=== PATIENT | male | born 1985 | race Caucasian/White ===

== ENCOUNTER → 2016-06-17 | Emergency (ER) | payer OTHER ==
--- NOTE | 2016-06-17 19:02 | DIAGNOSTIC IMAGING REPORT ---
PROCEDURE: CT ABD/PELVIS WITH CONTRAST CLINICAL INDICATION: Left lower quadrant pain x 17 hours, initial encounter. TECHNIQUE: 125 ml of Isovue 300 were injected intravenously and axial images were obtained of the entire abdomen and pelvis with sagittal and coronal reformations. COMPARISON: None. FINDINGS: ABDOMEN: Lung base are clear. Heart size is normal. Hepatic steatosis. Contracted gallbladder. Pancreas, spleen (splenule) and adrenal glands are normal. Small bilateral renal cysts. Normal abdominal aorta. Nonspecific bowel gas pattern. PELVIS: Normal appendix. 1.7 cm left lower quadrant fatty mass with adjacent inflammatory changes. This is adjacent to the proximal sigmoid colon without definite evidence of diverticuli and findings are most consistent with epiploic appendagitis. Trace free fluid. Normal bladder and prostate. Bones are unremarkable. IMPRESSION: 1. Left lower quadrant epiploic appendagitis. No definite evidence of diverticula to suggest diverticulitis 2. Trace free fluid the pelvis 3. Hepatic steatosis 4. Results discussed with Dr. Chairez All CT scans at this facility use dose modulation, iterative reconstruction, and/or weight-based dosing when appropriate to reduce radiation dose to as low as reasonably achievable.
--- NOTE | 2016-06-17 19:20 | ED NURSING NOTES ---
Clinical Report - Nurses [facility] [address] [place] [address] 06/17/2016 15:36 Patient: ROMY CROCKER TRIAGE Triage time 16:19. Acuity: LEVEL 3. Chief Complaint: ABDOMINAL PAIN. Alert. No acute distress. SEPSIS SCREEN: Sepsis Screen. Negative (no infection suspected/documented). RITCHIE COMA SCORE: Ritchie Coma Scale: 15- eyes open spontaneously (4); best verbal response- oriented x 4 (5); best motor response- obeys commands (6). --16:24 Sari Grider R.N. 16:19 06/17/16. BP: 139/93. HR: 85. RR: 18. O2 saturation: 98%. Temp: 98.3 F. Pain level now 7/10. --16:24 Sari Grider R.N. 17:42 06/17/16. BP: 150/87. HR: 83. RR: 20. O2 saturation: 98%. Temp: 98.1 F. Pain level now: 10. --17:43 Mi Chavez R.N. Weight: 90.7 kg stated. Height/Length: 66 inches Per Patient. BMI: 32.3. --16:21 Sari Grider R.N. Medications None. --16:24 aSri Grider R.N. Allergies No Known Drug Allergy. --16:25 Sari Grider R.N. History Arrived by private vehicle. Historian: patient. Accompanied by (spouse dropped off). Primary physician ([facility]). This started today. ( Pt. was seen at [facility] today and told he may have diverticulitis. He was instructed to go to the ED for a CT.). 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 PAST MEDICAL HX: Immunizations: up-to-date. SOCIAL HX: Never smoker. No alcohol use or drug use. No recent travel. No infectious disease exposure. No known contact with a sick individual. ABUSE ASSESSMENT: Abuse assessment: The patient was asked "Do you feel safe in your home?" and "Has anyone hurt you or threatened to hurt you?". No report of abuse. SELF HARM ASSESSMENT: A self harm assessment was performed. The patient answered "no" to the question "Do you have thoughts of harming or killing yourself?" and "Have you recently had thoughts about harming or killing others?". NUTRITIONAL RISK ASSESSMENT: The nutritional risk assessment revealed no deficiencies. FUNCTIONAL ASSESSMENT: Functional assessment: no impairments noted. LEARNING NEEDS ASSESSMENT: The learning needs assessment revealed no barriers. --16:24 Sari Grider R.N. Interventions ID band on patient. Ambulatory. --16:24 Sari Grider R.N. PHYSICAL ASSESSMENT Ambulatory to room. GENERAL / NEURO / PSYCH: Alert. Appears in no acute distress. HEENT: Mucous membranes are pink. RESPIRATORY: Respirations not labored. CVS: Capillary refill less than 2 seconds. GI / : Abdomen soft. Abdominal tenderness in the left lower quadrant. SKIN: Skin is warm and dry. --16:25 Sari Grider R.N. NURSING PROGRESS NOTES ( pt. rapid triaged and sent back to waiting room.). --16:27 Sari Grider R.N. Patient ID band checked for patient name, birthdate and medical record number: patient confirmed. Instructions provided to collect clean catch urine and patient verbalized understanding. Clean catch urine collected with return of yellow-colored clear urine; sample sent to lab for urinalysis. Specimen labeled in the presence of the patient. --16:27 Sari Grider R.N. Patient gowned. Head of bed elevated. Two patient identifiers checked. Call light placed in reach. Side rails up x 1. Bed placed in lowest position. Brakes of bed on. Patient ready for evaluation- chart flagged. --17:45 Mi Chavez R.N. DISPOSITION / DISCHARGE 19:31 06/17/16. BP: 137/83. HR: 66. RR: 16. O2 saturation: 97%. Pain level now: 10/27. --19:35 Mi Chavez R.N. Departure time: 1932. Condition at departure: unchanged. No learning barriers present. Discharge instructions provided and reviewed with the patient. Reviewed medication(s). Reviewed referral to a primary care physician. Patient verbalized understanding. Written instructions provided in [place]. The patient was discharged home and accompanied by spouse. He left the Emergency Department ambulatory and via private vehicle. Spouse driving. FALL RISK ASSESSMENT: Fall risk assessment completed. No fall risk identified. --19:35 Mi Chavez R.N. 18:36 06/17/2016 Site #1 started via IV in the left antecubital space with an 18g angiocath; one attempt. Saline lock flushed with saline (inserted by Stephanie PEMBERTON). --19:36 Mi Chavez R.N. 19:37 06/17/2016 Site #1 removed upon discharge. Catheter intact. Bandage applied. --19:37 Mi Chavez R.N. Locked/Released at 06/17/2016 19:46 by Mi Chavez R.N.
--- NOTE | 2016-06-17 19:20 | ED CLINICAL REPORT ---
Clinical Report - Physicians/Mid Levels [facility] [address] [place] [address] 06/17/2016 15:36 Patient: ROMY CROCKER Time Seen: 17:53; initial patient contact. Arrived- By private vehicle. Historian- patient. HISTORY OF PRESENT ILLNESS Chief Complaint: ABDOMINAL PAIN. It is described as sharp and stabbing. No radiation. It is described as located in the left lower quadrant. At its maximum, severity described as moderate. When seen in the E.D., severity described as moderate. Modifying factors. Not worsened by anything. Not relieved by anything. This started today and is still present. It was abrupt in onset and has been constant and waxing/waning. No nausea, loss of appetite, vomiting or diarrhea. Similar symptoms previously: None. Recent medical care: The patient was seen recently in a clinic. ( WBC 10.7 and nl CMP, amylase, and lipase). REVIEW OF SYSTEMS No constipation, pain with urination, urinary frequency, fever or chills. All systems otherwise negative, except as recorded above. PAST HISTORY Negative. Problems: no known problems. Surgeries: No history of previous surgery. Additional Surgeries: no known surgeries. Medications: None. Allergies: No Known Drug Allergy. SOCIAL HISTORY Never smoker. No alcohol use or drug use. ADDITIONAL NOTES The nursing notes have been reviewed with agreement regarding the chief complaint, PMH and patient medications and allergies. PHYSICAL EXAM Vital Signs: 06/17/2016 16:19 BP: 139/93. HR: 85. RR: 18. O2 saturation: 98%. Temp: 98.3 F. Have been reviewed. Hypertensive. Heart rate normal. Respiratory rate normal. Temperature normal. Oxygen saturation normal. Appearance: Alert. Oriented X3. No acute distress. Eyes: No scleral icterus or pale conjunctivae. ENT: Pharynx normal. CVS: Normal heart rate and rhythm. Heart sounds normal. Respiratory: No respiratory distress. Breath sounds normal. Abdomen: Soft. Moderate tenderness in the left lower quadrant with guarding and rebound tenderness present. Bowel sounds normal. No organomegaly. No mass. Back: Normal inspection. No CVA tenderness. Skin: Normal skin color. No rash. Extremities: No lower extremity edema. Neuro: Oriented X 3. LABS, X-RAYS, AND EKG Abdominal CT: 1. Left lower quadrant epiploic appendagitis. No definite evidence of diverticula to suggest diverticulitis 2. Trace free fluid the pelvis 3. Hepatic steatosis. Study type: abdomen and pelvis. Abdominal CT performed with IV contrast. The study was independently viewed by me, interpreted by the radiologist and discussed with the radiologist. Interpretation time: 19:07. PROGRESS AND PROCEDURES Discussed case with on-call health care provider, (call returned 19:10 Dr. Lundberg). Health care provider will see patient in office. Disposition: Discharged home in good condition. Condition: good. CLINICAL IMPRESSION (Epiploic appendagitis). INSTRUCTIONS Your Current Medications: CONTINUE TAKING THE FOLLOWING MEDICATIONS: None*. Prescription Medications: Diclofenac 50 mg tablets: take 1 tablet orally every 8 hours as needed for pain. Dispense twenty (20). No refill. Hydrocodone/APAP 5mg / 325mg: take 1 orally every 6 hours as needed for pain. Dispense fifteen (15). No refill. Follow-up: Screening today revealed the patient's blood pressure to be in the pre-hypertensive range. The patient should follow up with a primary care provider for blood pressure management. Follow-up with: Clinton Lundberg MD, General Surgeon, , [facility], [address] [place] [address] Follow up if not better. Call for an appointment. (Electronically signed by Israel Chairez Dr. 06/17/2016 19:26)
--- NOTE | 2016-06-17 19:20 | ED ORDER SUMMARY ---
..... Patient: ROMY CROCKER OrderSheet [facility] VisitID: [id number] [place] [address] 31y, M Registration Date/Time: 06/17/2016 ORDER SHEET Weight: 90.7 kg (stated) Allergies: No Known Drug Allergy GENERAL ORDERS: UA-Culture if indicated Urgent (16:27 06/17/2016 Quentin Juarez per protocol) (Ack 17:03 LNations ER Tech1) (17:04 LNations ER Tech1) CT Abd/Pel w Cont (No) (14/0.82) Urgent (18:14 06/17/2016 Michael Mayen) (Ack 18:18 MANISHAoerdavid) (18:22 Michael Mayen) MEDICATION ORDERS: IV FLUIDS: ORDER SHEET NOTES: [Electronically signed by Israel Chairez Dr. (19:26 06/17/2016)] [Electronically signed by Mi Chavez R.N. (19:46 06/17/2016)] [Electronically locked/signed by Mi Chavez R.N. (19:46 06/17/2016)]
--- NOTE | 2016-06-17 19:20 | ED CLINICAL REPORT ---
Clinical Report - Physicians/Mid Levels [facility] [address] [place] [address] 06/17/2016 15:36 Patient: ROMY CROCKER Time Seen: 17:53; initial patient contact. Arrived- By private vehicle. Historian- patient. HISTORY OF PRESENT ILLNESS Chief Complaint: ABDOMINAL PAIN. It is described as sharp and stabbing. No radiation. It is described as located in the left lower quadrant. At its maximum, severity described as moderate. When seen in the E.D., severity described as moderate. Modifying factors. Not worsened by anything. Not relieved by anything. This started today and is still present. It was abrupt in onset and has been constant and waxing/waning. No nausea, loss of appetite, vomiting or diarrhea. Similar symptoms previously: None. Recent medical care: The patient was seen recently in a clinic. ( WBC 10.7 and nl CMP, amylase, and lipase). REVIEW OF SYSTEMS No constipation, pain with urination, urinary frequency, fever or chills. All systems otherwise negative, except as recorded above. PAST HISTORY Negative. Problems: no known problems. Surgeries: No history of previous surgery. Additional Surgeries: no known surgeries. Medications: None. Allergies: No Known Drug Allergy. SOCIAL HISTORY Never smoker. No alcohol use or drug use. ADDITIONAL NOTES The nursing notes have been reviewed with agreement regarding the chief complaint, PMH and patient medications and allergies. PHYSICAL EXAM Vital Signs: 06/17/2016 16:19 BP: 139/93. HR: 85. RR: 18. O2 saturation: 98%. Temp: 98.3 F. Have been reviewed. Hypertensive. Heart rate normal. Respiratory rate normal. Temperature normal. Oxygen saturation normal. Appearance: Alert. Oriented X3. No acute distress. Eyes: No scleral icterus or pale conjunctivae. ENT: Pharynx normal. CVS: Normal heart rate and rhythm. Heart sounds normal. Respiratory: No respiratory distress. Breath sounds normal. Abdomen: Soft. Moderate tenderness in the left lower quadrant with guarding and rebound tenderness present. Bowel sounds normal. No organomegaly. No mass. Back: Normal inspection. No CVA tenderness. Skin: Normal skin color. No rash. Extremities: No lower extremity edema. Neuro: Oriented X 3. LABS, X-RAYS, AND EKG Abdominal CT: 1. Left lower quadrant epiploic appendagitis. No definite evidence of diverticula to suggest diverticulitis 2. Trace free fluid the pelvis 3. Hepatic steatosis. Study type: abdomen and pelvis. Abdominal CT performed with IV contrast. The study was independently viewed by me, interpreted by the radiologist and discussed with the radiologist. Interpretation time: 19:07. PROGRESS AND PROCEDURES Discussed case with on-call health care provider, (call returned 19:10 Dr. Lundberg). Health care provider will see patient in office. Disposition: Discharged home in good condition. Condition: good. CLINICAL IMPRESSION (Epiploic appendagitis). INSTRUCTIONS Your Current Medications: CONTINUE TAKING THE FOLLOWING MEDICATIONS: None*. Prescription Medications: Diclofenac 50 mg tablets: take 1 tablet orally every 8 hours as needed for pain. Dispense twenty (20). No refill. Hydrocodone/APAP 5mg / 325mg: take 1 orally every 6 hours as needed for pain. Dispense fifteen (15). No refill. Follow-up: Screening today revealed the patient's blood pressure to be in the pre-hypertensive range. The patient should follow up with a primary care provider for blood pressure management. Follow-up with: Clinton Lundberg MD, General Surgeon, , [facility], [address] [place] [address] Follow up if not better. Call for an appointment. (Electronically signed by Israel Chairez Dr. 06/17/2016 19:26)
--- NOTE | 2016-06-17 19:20 | ED NURSING NOTES ---
Clinical Report - Nurses [facility] [address] [place] [address] 06/17/2016 15:36 Patient: ROMY CROCKER TRIAGE Triage time 16:19. Acuity: LEVEL 3. Chief Complaint: ABDOMINAL PAIN. Alert. No acute distress. SEPSIS SCREEN: Sepsis Screen. Negative (no infection suspected/documented). RITCHIE COMA SCORE: Ritchie Coma Scale: 15- eyes open spontaneously (4); best verbal response- oriented x 4 (5); best motor response- obeys commands (6). --16:24 Sari Grider R.N. 16:19 06/17/16. BP: 139/93. HR: 85. RR: 18. O2 saturation: 98%. Temp: 98.3 F. Pain level now 7/10. --16:24 Sari Grider R.N. 17:42 06/17/16. BP: 150/87. HR: 83. RR: 20. O2 saturation: 98%. Temp: 98.1 F. Pain level now: 10. --17:43 Mi Chavez R.N. Weight: 90.7 kg stated. Height/Length: 66 inches Per Patient. BMI: 32.3. --16:21 Sari Grider R.N. Medications None. --16:24 Sari Grider R.N. Allergies No Known Drug Allergy. --16:25 Sari Grider R.N. History Arrived by private vehicle. Historian: patient. Accompanied by (spouse dropped off). Primary physician ([facility]). This started today. ( Pt. was seen at [facility] today and told he may have diverticulitis. He was instructed to go to the ED for a CT.). 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 PAST MEDICAL HX: Immunizations: up-to-date. SOCIAL HX: Never smoker. No alcohol use or drug use. No recent travel. No infectious disease exposure. No known contact with a sick individual. ABUSE ASSESSMENT: Abuse assessment: The patient was asked "Do you feel safe in your home?" and "Has anyone hurt you or threatened to hurt you?". No report of abuse. SELF HARM ASSESSMENT: A self harm assessment was performed. The patient answered "no" to the question "Do you have thoughts of harming or killing yourself?" and "Have you recently had thoughts about harming or killing others?". NUTRITIONAL RISK ASSESSMENT: The nutritional risk assessment revealed no deficiencies. FUNCTIONAL ASSESSMENT: Functional assessment: no impairments noted. LEARNING NEEDS ASSESSMENT: The learning needs assessment revealed no barriers. --16:24 Sari Grider R.N. Interventions ID band on patient. Ambulatory. --16:24 Sari Grider R.N. PHYSICAL ASSESSMENT Ambulatory to room. GENERAL / NEURO / PSYCH: Alert. Appears in no acute distress. HEENT: Mucous membranes are pink. RESPIRATORY: Respirations not labored. CVS: Capillary refill less than 2 seconds. GI / : Abdomen soft. Abdominal tenderness in the left lower quadrant. SKIN: Skin is warm and dry. --16:25 Sari Grider R.N. NURSING PROGRESS NOTES ( pt. rapid triaged and sent back to waiting room.). --16:27 Sari Grider R.N. Patient ID band checked for patient name, birthdate and medical record number: patient confirmed. Instructions provided to collect clean catch urine and patient verbalized understanding. Clean catch urine collected with return of yellow-colored clear urine; sample sent to lab for urinalysis. Specimen labeled in the presence of the patient. --16:27 Sari Grider R.N. Patient gowned. Head of bed elevated. Two patient identifiers checked. Call light placed in reach. Side rails up x 1. Bed placed in lowest position. Brakes of bed on. Patient ready for evaluation- chart flagged. --17:45 Mi Chavez R.N. DISPOSITION / DISCHARGE 19:31 06/17/16. BP: 137/83. HR: 66. RR: 16. O2 saturation: 97%. Pain level now: 10/27. --19:35 Mi Chavez R.N. Departure time: 1932. Condition at departure: unchanged. No learning barriers present. Discharge instructions provided and reviewed with the patient. Reviewed medication(s). Reviewed referral to a primary care physician. Patient verbalized understanding. Written instructions provided in [place]. The patient was discharged home and accompanied by spouse. He left the Emergency Department ambulatory and via private vehicle. Spouse driving. FALL RISK ASSESSMENT: Fall risk assessment completed. No fall risk identified. --19:35 Mi Chavez R.N. 18:36 06/17/2016 Site #1 started via IV in the left antecubital space with an 18g angiocath; one attempt. Saline lock flushed with saline (inserted by Stephanie PEMBERTON). --19:36 Mi Chavez R.N. 19:37 06/17/2016 Site #1 removed upon discharge. Catheter intact. Bandage applied. --19:37 Mi Chavez R.N. Locked/Released at 06/17/2016 19:46 by Mi Chavez R.N.
--- NOTE | 2016-06-17 19:20 | ED ORDER SUMMARY ---
..... Patient: ROMY CROCKER OrderSheet [facility] VisitID: [id number] [place] [address] 31y, M Registration Date/Time: 06/17/2016 ORDER SHEET Weight: 90.7 kg (stated) Allergies: No Known Drug Allergy GENERAL ORDERS: UA-Culture if indicated Urgent (16:27 06/17/2016 Quentin Juarez per protocol) (Ack 17:03 LNations ER Tech1) (17:04 LNations ER Tech1) CT Abd/Pel w Cont (No) (14/0.82) Urgent (18:14 06/17/2016 Michael Mayen) (Ack 18:18 MANISHAoerdavid) (18:22 Michael Mayen) MEDICATION ORDERS: IV FLUIDS: ORDER SHEET NOTES: [Electronically signed by Israel Chairez Dr. (19:26 06/17/2016)] [Electronically signed by Mi Chavez R.N. (19:46 06/17/2016)] [Electronically locked/signed by Mi Chavez R.N. (19:46 06/17/2016)]
--- NOTE | 2016-06-17 19:46 | ED MAR SUMMARY ---
..... Medication Administration Record [facility] [address] [place], [place] [id number] Patient: ROMY CROCKER Visit ID: [id number] 31y, M Weight: 90.7 kg Height/Length: 66 in BMI: 32.3 ALLERGIES: No Known Drug Allergy
--- NOTE | 2016-06-17 19:46 | ED MAR SUMMARY ---
..... Medication Administration Record [facility] [address] [place] [id number] Patient: ROMY CROCKER Visit ID: [id number] 31y, M Weight: 90.7 kg Height/Length: 66 in BMI: 32.3 ALLERGIES: No Known Drug Allergy
--- NOTE | 2016-06-17 19:46 | ED MED RECONCILIATION SUMMARY ---
Patient: ROMY CROCKER Medication Reconciliation Report [facility] VisitID: [id number] [place] [address] 31y, M Registration Date/Time: 06/17/2016 Weight: 90.7 kg Height/Length: 66 in. BMI: 32.3 ALLERGIES: No Known Drug Allergy The patient's Home Medications are listed below: NONE. The source(s) of the original Home Medication information: Not obtained. The following Medications were given to the patient in the Emergency Department: None. The following Medications were prescribed to the patient: Diclofenac 50 mg tablets: take 1 tablet orally every 8 hours as needed for pain. Dispense twenty (20). No refill. -- Israel Chairez Dr. Hydrocodone/APAP 5mg / 325mg: take 1 orally every 6 hours as needed for pain. Dispense fifteen (15). No refill. -- Israel Chairez Dr.
--- NOTE | 2016-06-17 19:46 | ED MED RECONCILIATION SUMMARY ---
Patient: ROMY CROCKER Medication Reconciliation Report [facility] VisitID: [id number] [place] [address] 31y, M Registration Date/Time: 06/17/2016 Weight: 90.7 kg Height/Length: 66 in. BMI: 32.3 ALLERGIES: No Known Drug Allergy The patient's Home Medications are listed below: NONE. The source(s) of the original Home Medication information: Not obtained. The following Medications were given to the patient in the Emergency Department: None. The following Medications were prescribed to the patient: Diclofenac 50 mg tablets: take 1 tablet orally every 8 hours as needed for pain. Dispense twenty (20). No refill. -- Israel Chairez Dr. Hydrocodone/APAP 5mg / 325mg: take 1 orally every 6 hours as needed for pain. Dispense fifteen (15). No refill. -- Israel Chairez Dr.
--- NOTE | 2016-06-17 19:46 | ED DISCHARGE INSTRUCTIONS ---
Patient: ROMY CROCKER General Instructions [facility] VisitID: [id number] Mike PersaudSteven Ville [id number] 31y, M Registration Date/Time: 06/17/2016 (Epiploic appendagitis). INSTRUCTIONS Your Current Medications: CONTINUE TAKING THE FOLLOWING MEDICATIONS: None*. Prescription Medications: Diclofenac 50 mg tablets: take 1 tablet orally every 8 hours as needed for pain. Dispense twenty (20). No refill. Hydrocodone/APAP 5mg / 325mg: take 1 orally every 6 hours as needed for pain. Dispense fifteen (15). No refill. Follow-up: Screening today revealed the patient's blood pressure to be in the pre-hypertensive range. The patient should follow up with a primary care provider for blood pressure management. Follow-up with: Clinton Lundberg MD, General Surgeon, , [facility], [address] [place] [address] Follow up if not better. Call for an appointment. ADDITIONAL INFORMATION Hydrocodone Bitartrate, Acetaminophen Oral tablet What is this medicine? ACETAMINOPHEN; HYDROCODONE (a set a ASHLEIGH david fen; bahman droe KOE done) is a pain reliever. It is used to treat mild to moderate pain. How should I use this medicine? Take this medicine by mouth. Swallow it with a full glass of water. Follow the directions on the prescription label. If the medicine upsets your stomach, take the medicine with food or milk. Do not take more than you are told to take. Talk to your skein washer regarding the use of this medicine in children. This medicine is not approved for use in children. What side effects may I notice from receiving this medicine? Side effects that you should report to your doctor or health complex care nurse as soon as possible: allergic reactions like skin rash, itching or hives, swelling of the face, lips, or tongue breathing problems confusion feeling faint or lightheaded, falls stomach pain yellowing of the eyes or skin Side effects that usually do not require medical attention (report to your doctor or health complex care nurse if they continue or are bothersome): nausea, vomiting stomach upset What may interact with this medicine? alcohol antihistamines isoniazid medicines for depression, anxiety, or psychotic disturbances medicines for sleep muscle relaxants naltrexone narcotic medicines (opiates) for pain phenobarbital ritonavir tramadol What if I miss a dose? If you miss a dose, take it as soon as you can. If it is almost time for your next dose, take only that dose. Do not take double or extra doses. Where should I keep my medicine? Keep out of the reach of children. This medicine can be abused. Keep your medicine in a safe place to protect it from theft. Do not share this medicine with anyone. Selling or giving away this medicine is dangerous and against the law. Store at room temperature between 15 and 30 degrees C (59 and 86 degrees F). Protect from light. Keep container tightly closed. Throw away any unused medicine after the expiration date. Discard unused medicine and used packaging carefully. Pets and children can be harmed if they find used or lost packages. What should I tell my health care provider before I take this medicine? They need to know if you have any of these conditions: brain tumor Crohn's disease, inflammatory bowel disease, or ulcerative colitis drink more than 3 alcohol-containing drinks per day drug abuse or addiction head injury heart or circulation problems kidney disease or problems going to the bathroom liver disease lung disease, asthma, or breathing problems an unusual or allergic reaction to acetaminophen, hydrocodone, other opioid analgesics, other medicines, foods, dyes, or preservatives or trying to get breast-feeding What should I watch for while using this medicine? Tell your doctor or health complex care nurse if your pain does not go away, if it gets worse, or if you have new or a different type of pain. You may develop tolerance to the medicine. Tolerance means that you will need a higher dose of the medicine for pain relief. Tolerance is normal and is expected if you take the medicine for a long time. Do not suddenly stop taking your medicine because you may develop a severe reaction. Your body becomes used to the medicine. This does NOT mean you are addicted. Addiction is a behavior related to getting and using a drug for a non-medical reason. If you have pain, you have a medical reason to take pain medicine. Your doctor will tell you how much medicine to take. If your doctor wants you to stop the medicine, the dose will be slowly lowered over time to avoid any side effects. You may get drowsy or dizzy when you first start taking the medicine or change doses. Do not drive, use machinery, or do anything that may be dangerous until you know how the medicine affects you. Stand or sit up slowly. There are different types of narcotic medicines (opiates) for pain. If you take more than one type at the same time, you may have more side effects. Give your health care provider a list of all medicines you use. Your doctor will tell you how much medicine to take. Do not take more medicine than directed. Call emergency for help if you have problems breathing. The medicine will cause constipation. Try to have a bowel movement at least every 2 to 3 days. If you do not have a bowel movement for 3 days, call your doctor or health complex care nurse. Too much acetaminophen can be very dangerous. Do not take Tylenol (acetaminophen) or medicines that contain acetaminophen with this medicine. Many non-prescription medicines contain acetaminophen. Always read the labels carefully. You have been given the following additional information: Hydrocodone Bitartrate, Acetaminophen Oral tablet (Electronically signed by Israel Chairez Dr. 06/17/2016 19:26)
--- NOTE | 2016-06-17 19:46 | ED DISCHARGE INSTRUCTIONS ---
Patient: ROMY CROCKER General Instructions [facility] VisitID: [id number] Mike PersaudMark Ville [phone] 31y, M Registration Date/Time: 06/17/2016 (Epiploic appendagitis). INSTRUCTIONS Your Current Medications: CONTINUE TAKING THE FOLLOWING MEDICATIONS: None*. Prescription Medications: Diclofenac 50 mg tablets: take 1 tablet orally every 8 hours as needed for pain. Dispense twenty (20). No refill. Hydrocodone/APAP 5mg / 325mg: take 1 orally every 6 hours as needed for pain. Dispense fifteen (15). No refill. Follow-up: Screening today revealed the patient's blood pressure to be in the pre-hypertensive range. The patient should follow up with a primary care provider for blood pressure management. Follow-up with: Clinton Lundberg MD, General Surgeon, , [facility], [address] [place] [address] Follow up if not better. Call for an appointment. ADDITIONAL INFORMATION Hydrocodone Bitartrate, Acetaminophen Oral tablet What is this medicine? ACETAMINOPHEN; HYDROCODONE (a set a ASHLEIGH david fen; bahman droe KOE done) is a pain reliever. It is used to treat mild to moderate pain. How should I use this medicine? Take this medicine by mouth. Swallow it with a full glass of water. Follow the directions on the prescription label. If the medicine upsets your stomach, take the medicine with food or milk. Do not take more than you are told to take. Talk to your entry level mechanical engineer regarding the use of this medicine in children. This medicine is not approved for use in children. What side effects may I notice from receiving this medicine? Side effects that you should report to your doctor or health direct support professional caregiver as soon as possible: allergic reactions like skin rash, itching or hives, swelling of the face, lips, or tongue breathing problems confusion feeling faint or lightheaded, falls stomach pain yellowing of the eyes or skin Side effects that usually do not require medical attention (report to your doctor or health direct support professional caregiver if they continue or are bothersome): nausea, vomiting stomach upset What may interact with this medicine? alcohol antihistamines isoniazid medicines for depression, anxiety, or psychotic disturbances medicines for sleep muscle relaxants naltrexone narcotic medicines (opiates) for pain phenobarbital ritonavir tramadol What if I miss a dose? If you miss a dose, take it as soon as you can. If it is almost time for your next dose, take only that dose. Do not take double or extra doses. Where should I keep my medicine? Keep out of the reach of children. This medicine can be abused. Keep your medicine in a safe place to protect it from theft. Do not share this medicine with anyone. Selling or giving away this medicine is dangerous and against the law. Store at room temperature between 15 and 30 degrees C (59 and 86 degrees F). Protect from light. Keep container tightly closed. Throw away any unused medicine after the expiration date. Discard unused medicine and used packaging carefully. Pets and children can be harmed if they find used or lost packages. What should I tell my health care provider before I take this medicine? They need to know if you have any of these conditions: brain tumor Crohn's disease, inflammatory bowel disease, or ulcerative colitis drink more than 3 alcohol-containing drinks per day drug abuse or addiction head injury heart or circulation problems kidney disease or problems going to the bathroom liver disease lung disease, asthma, or breathing problems an unusual or allergic reaction to acetaminophen, hydrocodone, other opioid analgesics, other medicines, foods, dyes, or preservatives or trying to get breast-feeding What should I watch for while using this medicine? Tell your doctor or health direct support professional caregiver if your pain does not go away, if it gets worse, or if you have new or a different type of pain. You may develop tolerance to the medicine. Tolerance means that you will need a higher dose of the medicine for pain relief. Tolerance is normal and is expected if you take the medicine for a long time. Do not suddenly stop taking your medicine because you may develop a severe reaction. Your body becomes used to the medicine. This does NOT mean you are addicted. Addiction is a behavior related to getting and using a drug for a non-medical reason. If you have pain, you have a medical reason to take pain medicine. Your doctor will tell you how much medicine to take. If your doctor wants you to stop the medicine, the dose will be slowly lowered over time to avoid any side effects. You may get drowsy or dizzy when you first start taking the medicine or change doses. Do not drive, use machinery, or do anything that may be dangerous until you know how the medicine affects you. Stand or sit up slowly. There are different types of narcotic medicines (opiates) for pain. If you take more than one type at the same time, you may have more side effects. Give your health care provider a list of all medicines you use. Your doctor will tell you how much medicine to take. Do not take more medicine than directed. Call emergency for help if you have problems breathing. The medicine will cause constipation. Try to have a bowel movement at least every 2 to 3 days. If you do not have a bowel movement for 3 days, call your doctor or health direct support professional caregiver. Too much acetaminophen can be very dangerous. Do not take Tylenol (acetaminophen) or medicines that contain acetaminophen with this medicine. Many non-prescription medicines contain acetaminophen. Always read the labels carefully. You have been given the following additional information: Hydrocodone Bitartrate, Acetaminophen Oral tablet (Electronically signed by Israel Chairez Dr. 06/17/2016 19:26)
== END ==
LOC: ED SRH 15:35
DX: K63.89 Other specified diseases of intestine (principal)
CPT/HCPCS: 90004